=== PATIENT | female | born 1995 | race Caucasian/White ===

== ENCOUNTER 2022-04-19 03:47 | Emergency (ER) | payer BC, OTHER ==
[~2022-04-19] VITALS: Ht 165.1 cm; Wt 61.2 kg
--- NOTE | 2022-04-19 04:08 | NUR ---
called for triage, no answer
[2022-04-19 04:26] VITALS: BP 139/92
--- NOTE | 2022-04-19 04:27 | NUR ---
Bibs for c/o urinary frequency, dysuria, hematuria and lower abd pain x 3 hours. PT [id number]. TOLERATING R/A WELL WITH NO SOB. CONNECTED PT TO POX AND MONITOR. PT AMBULATORY WITH STEADY GAIT. SAFETY MEASURES IN PLACE.
--- NOTE | 2022-04-19 04:32 | NUR ---
URINE COLLECTED AND SENT TO LAB
[2022-04-19] MEDS ORDERED: NITR100C15 PO (06:23)
[2022-04-19 06:35] LABS: BILIRUBIN,URINE NEGATIVE (NEGATIVE); LEUKOCYTE ESTERASE ,URINE LARGE (NEGATIVE); NITRITE, URINE NEGATIVE (NEGATIVE); PROTEIN,URINE 100 mg/dl (NEGATIVE); UGLUCOSE NEGATIVE (NEGATIVE); UROBILINOGEN,URINE 0.2 EU/dL (0.2)
[2022-04-19 06:37] LABS: COLOR,URINE RED (YELLOW)
[2022-04-19 06:44] LABS: BACTERIA,URINE Few /HPF (None Seen); RBC,URINE 81-100 /HPF (0-2); SQUAMOUS EPITHELIAL CELL,UR Few /HPF (None Seen); WBC,URINE 81-100 /HPF (0-3)
--- NOTE | 2022-04-19 06:53 | NUR ---
Patient discharged to home in stable condition. Written and verbal after care instructions given. Patient verbalizes understanding of instruction.
== END 2022-04-19 06:54 | disposition home or self-care (01) ==
LOC: ER 03:58
DX: N39.0 Urinary tract infection, site not specified (principal); Z88.2 Allergy status to sulfonamides; Z88.1 Allergy status to other antibiotic agents
CPT/HCPCS: 81001; 84703-TC; 87086-TC; 87186-TC